=== PATIENT | female | born 1980 | race Native Hawaiian/Other Pacific Islander ===

== ENCOUNTER 2017-11-10 16:52 | Emergency (ER) | payer OTHER ==
[2017-11-10 17:55] LABS: Alanine Aminotransferase 44 units/L (7-56); Albumin 3.7 g/dL (3.9-5); BUN/Creatinine Ratio 22; Blood Urea Nitrogen 13 mg/dL (7-17); Calcium 8.9 mg/dL (8.4-10.2); Hemolysis Index 36
[2017-11-10 18:04] LABS: Basophils % (Auto) 0.3 % (0.0-1.8); Eosinophils # (Auto) 0.1 K/mm3 (0.0-0.4); Eosinophils % (Auto) 1.2 % (0.0-4.3); Hematocrit 39.3 % (30.3-42.9); Hemoglobin 13.1 gm/dl (10.1-14.3); Lymphocytes # (Auto) 3.4 K/mm3 (1.2-5.4); Lymphocytes % (Auto) 39.6 % (13.4-35.0); Mean Corpuscular HGB Conc 33 % (30-34); Mean Corpuscular Hemoglobin 30 pg (28-32); Mean Corpuscular Volume 91 fl (79-97); Monocytes # (Auto) 0.8 K/mm3 (0.0-0.8); Monocytes % (Auto) 8.9 % (0.0-7.3); Platelet Count 275 K/mm3 (140-440); Red Blood Count 4.32 M/mm3 (3.65-5.03)
[2017-11-10] MEDS ORDERED: ZOFRAN IV ONE (21:43)
[2017-11-10] MEDS ORDERED: SUBLIMAZE IV ONE (21:43)
[2017-11-10] MEDS ORDERED: NACL 0.9% 1000 ML 1,000 ML IV ONE (21:43)
--- NOTE | 2017-11-10 21:47 | Emergency Department Report ---
ED Abdominal Pain HPI - General Chief Complaint: Abdominal Pain Stated Complaint: HEAD/BACK PAIN Time Seen by Provider: 11/10/17 21:37 Source: patient, family Mode of arrival: Ambulatory Limitations: Language Barrier - History of Present Illness Initial Comments: Patient is a 37-year-old female with no significant past medical history or surgical history except for hysterectomy. Patient presented to the ER with chief complaint of right flank pain that radiated to her groin area and suprapubic area. Pain is sharp and comes and goes. Associated with nausea but no vomiting no diarrhea. Patient denied any hematuria or urinary symptoms. No fever. MD Complaint: abdominal pain, flank pain -: week(s) Location: suprapubic, R flank Radiation: suprapubic Migration to: no migration Severity scale (0 -10): 7 Quality: stabbing, fullness Consistency: constant Associated Symptoms: nausea, vomiting. denies: diarrhea - Related Data Home Medications Medication Instructions Recorded Confirmed Last Taken Bisoprolol/Hctz [Ziac 2.5-6.25] 1 each PO DAILY 06/26/16 06/29/16 06/29/16 08:00 Allergies Allergy/AdvReac Type Severity Reaction Status Date / Time No Known Allergies Allergy Unverified 06/26/16 14:38 ED Review of Systems ROS: Stated complaint: HEAD/BACK PAIN Other details as noted in HPI Comment: All other systems reviewed and negative Constitutional: chills. denies: fever Respiratory: denies: cough, orthopnea, shortness of breath, SOB with exertion, SOB at rest, wheezing Cardiovascular: denies: chest pain, palpitations, dyspnea on exertion Gastrointestinal: abdominal pain, nausea. denies: vomiting, diarrhea, constipation, hematemesis, melena, hematochezia Genitourinary: denies: urgency, dysuria, frequency, hematuria Musculoskeletal: back pain Skin: denies: rash, lesions, change in color, change in hair/nails Neurological: denies: headache, weakness, numbness, paresthesias, confusion, abnormal gait ED Past Medical Hx - Past Medical History Previous Medical History?: Yes Hx Hypertension: Yes (x 4 mos) Hx GERD: Yes - Surgical History Past Surgical History?: No - Social History Smoking Status: Never Smoker Substance Use Type: None - Medications Home Medications: Home Medications Medication Instructions Recorded Confirmed Last Taken Type Bisoprolol/Hctz [Ziac 2.5-6.25] 1 each PO DAILY 06/26/16 06/29/16 06/29/16 08: 00 History ED Physical Exam - General Limitations: Language Barrier General appearance: alert, in no apparent distress - Head Head exam: Present: atraumatic, normocephalic, normal inspection - Eye Eye exam: Present: normal appearance, PERRL - ENT ENT exam: Present: normal exam, normal orophraynx, mucous membranes moist - Neck Neck exam: Present: normal inspection, full ROM. Absent: tenderness, meningismus, lymphadenopathy - Respiratory Respiratory exam: Present: normal lung sounds bilaterally. Absent: respiratory distress, wheezes, rales, rhonchi, stridor, chest wall tenderness, accessory muscle use, decreased breath sounds, prolonged expiratory - Cardiovascular Cardiovascular Exam: Present: regular rate, normal rhythm, normal heart sounds - GI/Abdominal GI/Abdominal exam: Present: soft, tenderness (suprapubic tenderness), normal bowel sounds. Absent: distended, guarding, rebound, rigid, organomegaly, mass, bruit, hernia - Extremities Exam Extremities exam: Present: normal inspection, full ROM, normal capillary refill. Absent: tenderness, pedal edema, joint swelling, calf tenderness - Back Exam Back exam: Present: normal inspection, full ROM, CVA tenderness (R). Absent: tenderness, CVA tenderness (L), muscle spasm, paraspinal tenderness, vertebral tenderness, rash noted - Neurological Exam Neurological exam: Present: alert, oriented X3, CN II-XII intact, normal gait, reflexes normal. Absent: abnormal gait, motor sensory deficit - Skin Skin exam: Present: warm, intact, normal color. Absent: cyanosis, diaphoretic ED Course Vital Signs 11/10/17 11/10/17 11/10/17 16:55 21:49 22:00 Temperature 98.9 F Pulse Rate 63 Respiratory 16 Rate Blood Pressure 131/72 134/73 O2 Sat by Pulse 97 99 99 Oximetry 11/10/17 11/10/17 11/10/17 22:26 22:30 22:31 Temperature Pulse Rate Respiratory 13 Rate Blood Pressure 132/70 129/57 132/70 O2 Sat by Pulse 100 95 Oximetry 11/10/17 11/10/17 11/10/17 22:45 23:00 23:34 Temperature Pulse Rate Respiratory Rate Blood Pressure 123/54 116/61 123/54 O2 Sat by Pulse 98 96 99 Oximetry 11/10/17 11/11/17 11/11/17 23:46 00:00 00:15 Temperature Pulse Rate Respiratory Rate Blood Pressure 123/54 127/80 129/79 O2 Sat by Pulse 97 98 98 Oximetry - Reevaluation(s) Reevaluation #1: 11/11/17 00:47 Patient stated that she is feeling much better. Pain completely resolved. I informed the patient about her CT abdomen and pelvis results and her ultrasound of the abdomen which showed gallbladder stone. No clinical evidence of acute cholecystitis. Our last the patient follow-up with Dr. Burks for further management. ED Medical Decision Making - Lab Data Result diagrams: 11/10/17 17:20 11/10/17 17:20 - Radiology Data Radiology results: report reviewed Referring Physician: ROSANA WORTHY Patient Name: KATHLEEN LOPEZ Date of : 1980 Sex: Female Report Date: 2017-11-10 Report Status: Finalized Findings [facility] [address] [place] [address] Ultrasound Report Signed Patient: KATHLEEN LOPEZ MR#: [id number] : 1980 Acct:[id number] Age/Sex: 37 / F ADM Date: 11/10/17 Loc: ED Attending Dr: Ordering Physician: ROSANA WORTHY Date of Service: 11/10/17 Procedure(s): US abdomen limited Accession Number(s): [id number] cc: ROSANA WORTHY FINAL REPORT EXAM: US ABDOMEN LIMITED HISTORY: gallbladder ultrasound COMPARISON: CT of the abdomen and pelvis from November 10, 2017. TECHNIQUE: Several real-time grayscale and color Doppler images were obtained. FINDINGS: There is increased echogenicity of the liver compatible with fatty infiltration. Visualized pancreas is unremarkable. Majority the pancreatic body is obscured by bowel gas. Visualized aorta and IVC are normal in caliber. Right kidney measures 9.5 centimeters in length. No hydronephrosis. Multiple shadowing gallstones. Borderline gallbladder wall thickness. Evaluation wall thickness limited due to contracted state of the gallbladder. No pericholecystic fluid. The common bile duct measures up to 4 millimeters within normal limits. IMPRESSION: Cholelithiasis. Limited evaluation of gallbladder wall thickening due to its contracted state. No pericholecystic fluid or biliary dilatation. Correlation for Lanier's sign is needed. Transcribed By: JOVANNI Dictated By: ARACELI COLUNGA MD Electronically Authenticated By: ARACELI COLUNGA MD Signed Date/Time: 11/10/172030 DD/ 30 TD/TT: 11/10/172030 Referring Physician: ROSANA WORTHY Patient Name: KATHLEEN LOPEZ Date of : 1980 Sex: Female Report Date: 2017-11-10 Report Status: Finalized Findings [place] [id number] Cat Scan Report Signed Patient: KATHLEEN LOPEZ MR#: [id number] : 1980 Acct:[id number] Age/Sex: 37 / F ADM Date: 11/10/17 Loc: ED Attending Dr: Ordering Physician: ROSANA WORTHY Date of Service: 11/10/17 Procedure(s): CT abdomen pelvis wo con Accession Number(s): [id number] cc: ROSANA WORTHY FINAL REPORT EXAM: CT ABDOMEN PELVIS WO CON HISTORY: ABDOMINAL PAIN, right flank pain TECHNIQUE: CT abdomen and pelvis without contrast PRIORS: None. FINDINGS: No acute abnormality identified in the lung bases. No focal abnormality identified within the liver parenchyma. The spleen demonstrates normal size and attenuation. No pancreatic abnormalities seen. Kidneys demonstrate no evidence of hydronephrosis or nephrolithiasis. No ureteral calculus identified. The adrenal glands are unremarkable. Abdominal aorta is normal in caliber. No pathologically enlarged lymph nodes are identified. No signs of free fluid or free air No evidence of small bowel dilatation. No pericolonic inflammatory changes are identified Urinary bladder is unremarkable. IMPRESSION: Negative. No acute abnormalities seen Transcribed By: ANGEL Dictated By: RADHA BRADY MD Electronically Authenticated By: RADHA BRADY MD Signed Date/Time: 11/10/171844 DD/ 44 TD/TT: 11/10/171844 Critical care attestation.: If time is entered above; I have spent that time in minutes in the direct care of this critically ill patient, excluding procedure time. ED Disposition Clinical Impression: Abdominal pain, Gallbladder stone without cholecystitis or obstruction Disposition: - TO HOME OR SELFCARE Is pt being admited?: No Condition: Stable Instructions: Abdominal Pain (ED), Biliary Colic (ED) Referrals: MAREN BURKS MD [Staff Physician] - 3-5 Days
[2017-11-10 22:25] LABS: Bacteria,Urine 4+ /HPF (Negative); Bilirubin,Urine NEG (Negative); Blood,Urine NEG (Negative); Color,Urine Yellow (Yellow); Protein,Urine <15 mg/dL mg/dL (Negative); Urobilinogen,Urine < 2.0 mg/dL (<2.0)
--- NOTE | 2017-11-10 22:49 | Cat Scan Report ---
FINAL REPORT EXAM: CT ABDOMEN PELVIS WO CON HISTORY: ABDOMINAL PAIN, right flank pain TECHNIQUE: CT abdomen and pelvis without contrast PRIORS: None. FINDINGS: No acute abnormality identified in the lung bases. No focal abnormality identified within the liver parenchyma. The spleen demonstrates normal size and attenuation. No pancreatic abnormalities seen. Kidneys demonstrate no evidence of hydronephrosis or nephrolithiasis. No ureteral calculus identified. The adrenal glands are unremarkable. Abdominal aorta is normal in caliber. No pathologically enlarged lymph nodes are identified. No signs of free fluid or free air No evidence of small bowel dilatation. No pericolonic inflammatory changes are identified Urinary bladder is unremarkable. IMPRESSION: Negative. No acute abnormalities seen
[2017-11-11 00:27] VITALS: BP 129/79
--- NOTE | 2017-11-11 00:35 | Ultrasound Report ---
FINAL REPORT EXAM: US ABDOMEN LIMITED HISTORY: gallbladder ultrasound COMPARISON: CT of the abdomen and pelvis from November 10, 2017. TECHNIQUE: Several real-time grayscale and color Doppler images were obtained. FINDINGS: There is increased echogenicity of the liver compatible with fatty infiltration. Visualized pancreas is unremarkable. Majority the pancreatic body is obscured by bowel gas. Visualized aorta and IVC are normal in caliber. Right kidney measures 9.5 centimeters in length. No hydronephrosis. Multiple shadowing gallstones. Borderline gallbladder wall thickness. Evaluation wall thickness limited due to contracted state of the gallbladder. No pericholecystic fluid. The common bile duct measures up to 4 millimeters within normal limits. IMPRESSION: Cholelithiasis. Limited evaluation of gallbladder wall thickening due to its contracted state. No pericholecystic fluid or biliary dilatation. Correlation for Lanier's sign is needed.
== END 2017-11-11 01:23 | disposition home or self-care (01) ==
LOC: ED 16:52
DX: K80.20 Calculus of gallbladder without cholecystitis without obstruction (principal); R10.9 Unspecified abdominal pain; I10 Essential (primary) hypertension; K21.9 Gastro-esophageal reflux disease without esophagitis
CPT/HCPCS: 36415; 74176; 76705; 80053; 81001; 85025; 96361; 96374; 96375; 99284; J2405; J3010; J7030

== ENCOUNTER 2017-11-21 18:30 | Emergency (ER) | payer OTHER ==
[2017-11-21 20:03] LABS: Basophils % (Auto) 0.3 % (0.0-1.8); Eosinophils # (Auto) 0.1 K/mm3 (0.0-0.4); Eosinophils % (Auto) 1.2 % (0.0-4.3); Hematocrit 41.3 % (30.3-42.9); Hemoglobin 13.8 gm/dl (10.1-14.3); Lymphocytes % (Auto) 34.9 % (13.4-35.0); Mean Corpuscular HGB Conc 33 % (30-34); Mean Corpuscular Hemoglobin 30 pg (28-32); Mean Corpuscular Volume 91 fl (79-97); Monocytes # (Auto) 0.7 K/mm3 (0.0-0.8); Monocytes % (Auto) 8.4 % (0.0-7.3); Platelet Count 302 K/mm3 (140-440); Red Blood Count 4.53 M/mm3 (3.65-5.03); Red Cell Distribution Width 13.2 % (13.2-15.2)
[2017-11-21 20:17] LABS: Alanine Aminotransferase 44 units/L (7-56); Albumin 4.1 g/dL (3.9-5); BUN/Creatinine Ratio 20; Blood Urea Nitrogen 10 mg/dL (7-17); Calcium 9.2 mg/dL (8.4-10.2); Hemolysis Index 34
[2017-11-21 20:42] LABS: Bacteria,Urine 1+ /HPF (Negative); Bilirubin,Urine NEG (Negative); Blood,Urine NEG (Negative); Color,Urine Yellow (Yellow); Mucus,Urine 1+ /HPF; Protein,Urine <15 mg/dL mg/dL (Negative); Urobilinogen,Urine < 2.0 mg/dL (<2.0)
[2017-11-21] MEDS ORDERED: SUBLIMAZE IV ONE (21:20)
[2017-11-21 22:44] VITALS: BP 132/69
--- NOTE | 2017-11-21 22:46 | Cat Scan Report ---
FINAL REPORT PROCEDURE: CT ABDOMEN PELVIS W CON TECHNIQUE: Computerized axial tomography of the abdomen and pelvis was performed after the IV injection of iodinated nonionic contrast. HISTORY: gallstone pain COMPARISON: Ultrasound and CT 11/10/2017 FINDINGS: Visualized lower thorax: No significant abnormality. Liver: There is diffuse low attenuation of the liver, which can be seen with fatty infiltration. Spleen: Normal size and attenuation. Gallbladder and biliary system: Gallbladder is distended. No biliary ductal dilatation is seen. Gallbladder wall demonstrates diffuse enhancement and mild wall thickening. No surrounding inflammatory changes or pericholecystic fluid is noted Pancreas: Normal. Adrenals: Normal. Kidneys: Normal. GI tract: Moderate volume of stool throughout the colon is compatible with constipation. The appendix is visualized and does not appear inflamed. Lymph nodes and mesentery: Normal. Vasculature: Normal. Bladder: Normal. Reproductive organs: Normal. Peritoneum: No free fluid. Musculoskeletal structures: No significant abnormality. Other: None. IMPRESSION: Gallbladder distention and wall thickening. No significant acute inflammatory changes are seen by CT. Further evaluation with ultrasound or hepatobiliary scan could be obtained as clinically indicated to evaluate for possible cholecystitis.
[2017-11-21] MEDS ORDERED: PERCOCET 5/325 PO ONE (23:45)
--- NOTE | 2017-11-22 00:33 | Emergency Department Report ---
ED General Adult HPI - General Chief complaint: Abdominal Pain Stated complaint: GALLSTONE PAIN Time Seen by Provider: 11/21/17 21:18 Source: patient, family Mode of arrival: Ambulatory Limitations: No Limitations - History of Present Illness Initial comments: Patient is a 37-year-old female past medical history of cholelithiasis who presents with abdominal pain that's been going on for last couple days. History is obtained by patient's daughter S patient is Nauruan-speaking. Patient states that pain started earlier on today it's an 8 out of 10 nothing makes it worse she also has some nausea with the pain. She was seen last week for similar symptoms and was told to follow-up with an outpatient surgeon. Patient states that she was told to come back to the ED if her pain got worse. Patient states her pain got worse. No fever no trauma to the belly Severity scale (0 -10): 7 - Related Data Home Medications Medication Instructions Recorded Confirmed Last Taken Bisoprolol/Hctz [Ziac 2.5-6.25] 1 each PO DAILY 06/26/16 06/29/16 06/29/16 08:00 Previous Rx's Medication Instructions Recorded Last Taken Type HYDROcodone/APAP 5-325 [[place] 1 each PO Q6HR PRN #14 tablet 11/11/17 Unknown Rx 5/325] Ondansetron [Zofran Odt] 4 mg PO Q8HR PRN #14 tab.rapdis 11/11/17 Unknown Rx Meloxicam [Mobic] 15 mg PO DAILY #20 tablet 11/22/17 Unknown Rx traMADol [Ultram 50 MG tab] 50 mg PO Q6HR PRN #13 tablet 11/22/17 Unknown Rx Allergies Allergy/AdvReac Type Severity Reaction Status Date / Time No Known Allergies Allergy Verified 11/21/17 18:42 ED Review of Systems ROS: Stated complaint: GALLSTONE PAIN Other details as noted in HPI Constitutional: denies: chills, fever Eyes: denies: eye pain, eye discharge, vision change ENT: denies: ear pain, throat pain Respiratory: denies: cough, shortness of breath, wheezing Cardiovascular: denies: chest pain, palpitations Endocrine: no symptoms reported Gastrointestinal: abdominal pain, nausea. denies: diarrhea Genitourinary: denies: urgency, dysuria, discharge Musculoskeletal: denies: back pain, joint swelling, arthralgia Skin: denies: rash, lesions Neurological: denies: headache, weakness, paresthesias Psychiatric: denies: anxiety, depression Hematological/Lymphatic: denies: easy bleeding, easy bruising ED Past Medical Hx - Past Medical History Previous Medical History?: Yes Hx Hypertension: Yes (x 4 mos) Hx GERD: Yes - Surgical History Past Surgical History?: Yes Additional Surgical History: Hysterectomy, tonsils - Social History Smoking Status: Never Smoker Substance Use Type: None - Medications Home Medications: Home Medications Medication Instructions Recorded Confirmed Last Taken Type Bisoprolol/Hctz [Ziac 2.5-6.25] 1 each PO DAILY 06/26/16 06/29/16 06/29/16 08: 00 History HYDROcodone/APAP 5-325 [[place] 1 each PO Q6HR PRN #14 tablet 11/11/17 Unknown Rx 5/325] Ondansetron [Zofran Odt] 4 mg PO Q8HR PRN #14 tab.rapdis 11/11/17 Unknown Rx Meloxicam [Mobic] 15 mg PO DAILY #20 tablet 11/22/17 Unknown Rx traMADol [Ultram 50 MG tab] 50 mg PO Q6HR PRN #13 tablet 11/22/17 Unknown Rx ED Physical Exam - General Limitations: No Limitations General appearance: alert, in no apparent distress - Head Head exam: Present: atraumatic, normocephalic - Eye Eye exam: Present: normal appearance - ENT ENT exam: Present: mucous membranes moist - Neck Neck exam: Present: normal inspection - Respiratory Respiratory exam: Present: normal lung sounds bilaterally. Absent: respiratory distress - Cardiovascular Cardiovascular Exam: Present: regular rate, normal rhythm. Absent: systolic murmur, diastolic murmur, rubs, gallop - GI/Abdominal GI/Abdominal exam: Present: soft, normal bowel sounds - Extremities Exam Extremities exam: Present: normal inspection - Back Exam Back exam: Present: normal inspection - Neurological Exam Neurological exam: Present: alert, oriented X3 - Psychiatric Psychiatric exam: Present: normal affect, normal mood - Skin Skin exam: Present: warm, dry, intact, normal color. Absent: rash ED Course Vital Signs 11/21/17 11/21/17 11/21/17 19:40 21:13 21:15 Temperature 98.1 F Pulse Rate 64 Respiratory 18 Rate Blood Pressure 153/76 139/57 139/57 O2 Sat by Pulse 99 98 98 Oximetry 11/21/17 11/21/17 11/21/17 21:17 21:31 22:05 Temperature 98.9 F Pulse Rate 86 Respiratory Rate Blood Pressure 148/60 148/60 O2 Sat by Pulse 100 98 Oximetry 11/21/17 11/21/17 22:15 22:30 Temperature Pulse Rate Respiratory Rate Blood Pressure 148/60 132/69 O2 Sat by Pulse 99 98 Oximetry ED Medical Decision Making - Lab Data Result diagrams: 11/21/17 19:53 11/21/17 19:53 Lab Results 11/21/17 11/21/17 11/21/17 Range/Units 19:53 19:53 Unknown WBC 8.7 (4.5-11.0) K/mm3 RBC 4.53 (3.65-5.03) M/mm3 Hgb 13.8 (10.1-14.3) gm/dl Hct 41.3 (30.3-42.9) % MCV 91 (79-97) fl MCH 30 (28-32) pg MCHC 33 (30-34) % RDW 13.2 (13.2-15.2) % Plt Count 302 (140-440) K/mm3 Lymph % (Auto) 34.9 (13.4-35.0) % [place] % (Auto) 8.4 H (0.0-7.3) % Eos % (Auto) 1.2 (0.0-4.3) % Baso % (Auto) 0.3 (0.0-1.8) % Lymph # 3.0 (1.2-5.4) K/mm3 [place] # 0.7 (0.0-0.8) K/mm3 Eos # 0.1 (0.0-0.4) K/mm3 Baso # 0.0 (0.0-0.1) K/mm3 Seg Neutrophils % 55.2 (40.0-70.0) % Seg Neutrophils # 4.8 (1.8-7.7) K/mm3 Sodium 136 L (137-145) mmol/L Potassium 3.5 L (3.6-5.0) mmol/L Chloride 98.6 (98-107) mmol/L Carbon Dioxide 27 (22-30) mmol/L Anion Gap 14 mmol/L BUN 10 (7-17) mg/dL Creatinine 0.5 L (0.7-1.2) mg/dL Estimated GFR > 60 ml/min BUN/Creatinine Ratio 20 % Glucose 93 (65-100) mg/dL Calcium 9.2 (8.4-10.2) mg/dL Total Bilirubin 0.20 (0.1-1.2) mg/dL AST 40 (5-40) units/L ALT 44 (7-56) units/L Alkaline Phosphatase 72 (35-129) units/L Total Protein 7.0 (6.3-8.2) g/dL Albumin 4.1 (3.9-5) g/dL Albumin/Globulin Ratio 1.4 % Urine Color Yellow (Yellow) Urine Turbidity Clear (Clear) Urine pH 6.0 (5.0-7.0) Ur Specific [place] 1.021 (1.003-1.030) Urine Protein <15 mg/dl (Negative) mg/dL Urine Glucose (UA) Neg (Negative) mg/dL Urine Ketones Neg (Negative) mg/dL Urine Blood Neg (Negative) Urine Nitrite Neg (Negative) Urine Bilirubin Neg (Negative) Urine Urobilinogen < 2.0 (<2.0) mg/dL Ur Leukocyte Esterase Neg (Negative) Urine WBC (Auto) 4.0 (0.0-6.0) /HPF Urine RBC (Auto) 1.0 (0.0-6.0) /HPF U Epithel Cells (Auto) 5.0 (0-13.0) /HPF Urine Bacteria (Auto) 1+ (Negative) /HPF Urine Mucus 1+ /HPF - Radiology Data Radiology results: report reviewed, image reviewed Chief medical diagnosis: Cholelithiasis and excellent differential medical diagnosis: Pancreatitis, cholecystitis CT SCAN of IV pain medication, CBC, BMP and will reevaluate patient. Patient's pain has improved. Patient's gallbladder disease is unchanged from prior to one week ago. I will give patient f/u with surgery. Gave patient additional verbal discharge instructions. Patient agrees with plan. Critical care attestation.: If time is entered above; I have spent that time in minutes in the direct care of this critically ill patient, excluding procedure time. ED Disposition Clinical Impression: Gallbladder stone without cholecystitis or obstruction Abdominal pain Qualifiers: Abdominal location: generalized Qualified Code(s): R10.84 - Generalized abdominal pain Disposition: DC-01 TO HOME OR SELFCARE Is pt being admited?: No Does the pt Need Aspirin: No Condition: Stable Instructions: Biliary Colic (ED), Low Fat Diet (ED) Prescriptions: Meloxicam [Mobic] 15 mg PO DAILY #20 tablet traMADol [Ultram 50 MG tab] 50 mg PO Q6HR PRN #13 tablet PRN Reason: Pain Referrals: SHANT REAVES MD [Staff Physician] - 3-5 Days Print Language: CITIZEN OF [place]
== END 2017-11-22 01:04 | disposition home or self-care (01) ==
LOC: ED 18:30
DX: K80.20 Calculus of gallbladder without cholecystitis without obstruction (principal); R10.84 Generalized abdominal pain; I10 Essential (primary) hypertension; K21.9 Gastro-esophageal reflux disease without esophagitis
CPT/HCPCS: 36415; 74177; 80053; 81001; 85025; 96374; 99284; J3010; Q9967

== ENCOUNTER 2017-12-08 04:38 | Emergency (ER) | payer OTHER ==
[2017-12-08] MEDS ORDERED: ZOFRAN IV ONE ×2 (05:14→05:53)
[2017-12-08] MEDS ORDERED: DILAUDID IV ONE ×4 (05:14→08:53)
[2017-12-08 05:42] LABS: Basophils % (Auto) 0.3 % (0.0-1.8); Eosinophils # (Auto) 0.1 K/mm3 (0.0-0.4); Eosinophils % (Auto) 0.7 % (0.0-4.3); Hematocrit 41.5 % (30.3-42.9); Hemoglobin 13.5 gm/dl (10.1-14.3); Lymphocytes # (Auto) 2.6 K/mm3 (1.2-5.4); Lymphocytes % (Auto) 23.2 % (13.4-35.0); Mean Corpuscular HGB Conc 33 % (30-34); Mean Corpuscular Hemoglobin 30 pg (28-32); Mean Corpuscular Volume 92 fl (79-97); Monocytes # (Auto) 0.9 K/mm3 (0.0-0.8); Platelet Count 238 K/mm3 (140-440); Red Blood Count 4.53 M/mm3 (3.65-5.03); Red Cell Distribution Width 13.1 % (13.2-15.2)
[2017-12-08 05:58] LABS: Alanine Aminotransferase 73 units/L (7-56); Albumin 3.6 g/dL (3.9-5); BUN/Creatinine Ratio 18; Blood Urea Nitrogen 11 mg/dL (7-17); Calcium 8.2 mg/dL (8.4-10.2); Hemolysis Index 0
--- NOTE | 2017-12-08 06:12 | Emergency Department Report ---
ED Abdominal Pain HPI - General Chief Complaint: Abdominal Pain Stated Complaint: CHEST PAIN Time Seen by Provider: 12/08/17 05:58 Source: patient, family, EMS Mode of arrival: Stretcher Limitations: Physical Limitation, Other - History of Present Illness Initial Comments: Mrs. Barragan is a 37 yo female with hx of hypertension who presents 3 days status post open cholecystectomy on Sunday by Dr. Burks. Patient did well. She was discharged next day on . This morning her stated that she has sudden onset of abdominal pain and chest pain at 4:00. She has been taking the pain medicine. She has tenderness and severe pain at the site of the incision that radiates to her chest. She does not feel well. Mild headache. No fever. Positive nausea. Pain is worse with movement. Incision is tender to touch. I reviewed discharge summary by Dr. Burks. No complications. MD Complaint: abdominal pain -: Sudden Time: 04:00 Radiation: chest Severity: severe Severity scale (0 -10): 10 Quality: cramping, sharp, burning Consistency: constant Improves With: nothing Worsens With: movement Context: recent surgery/procedure Associated Symptoms: nausea. denies: vomiting, diarrhea, chills, constipation - Related Data Home Medications Medication Instructions Recorded Confirmed Last Taken Bisoprolol/Hctz [Ziac 2.5-6.25] 1 each PO DAILY 06/26/16 12/05/17 12/05/17 Previous Rx's Medication Instructions Recorded Last Taken Type Meloxicam [Mobic] 15 mg PO DAILY #20 tablet 11/22/17 12/04/17 Rx Oxycodone HCl/Acetaminophen 1 each PO Q4H PRN #15 tablet 12/08/17 Unknown Rx [Percocet 10/325 mg] Allergies Allergy/AdvReac Type Severity Reaction Status Date / Time No Known Allergies Allergy Verified 12/04/17 09:42 ED Review of Systems ROS: Stated complaint: CHEST PAIN Other details as noted in HPI Comment: All other systems reviewed and negative Constitutional: denies: chills, fever Respiratory: denies: cough, shortness of breath Cardiovascular: chest pain ED Past Medical Hx - Past Medical History Previous Medical History?: Yes Hx Hypertension: Yes (x 4 mos) Hx Heart Attack/AMI: No Hx Congestive Heart Failure: No Hx Diabetes: No Hx GERD: Yes Hx Liver Disease: No Hx Renal Disease: No Hx Sickle Cell Disease: No Hx Asthma: No Hx COPD: No Hx HIV: No - Surgical History Past Surgical History?: Yes Hx Pacemaker: No Hx Internal Defibrillator: No Hx Cholecystectomy: Yes Additional Surgical History: Hysterectomy, tonsils - Social History Smoking Status: Never Smoker Substance Use Type: None - Medications Home Medications: Home Medications Medication Instructions Recorded Confirmed Last Taken Type Bisoprolol/Hctz [Ziac 2.5-6.25] 1 each PO DAILY 06/26/16 12/05/17 12/05/17 History Meloxicam [Mobic] 15 mg PO DAILY #20 tablet 11/22/17 12/05/17 12/04/17 Rx Oxycodone HCl/Acetaminophen 1 each PO Q4H PRN #15 tablet 12/08/17 Unknown Rx [Percocet 10/325 mg] ED Physical Exam - General Limitations: Physical Limitation, Other General appearance: alert, other (appears in severe pain no respiratory distress ) - Head Head exam: Present: atraumatic, normocephalic - Eye Eye exam: Present: normal appearance - ENT ENT exam: Present: normal exam, mucous membranes moist - Neck Neck exam: Present: normal inspection - Respiratory Respiratory exam: Present: normal lung sounds bilaterally. Absent: respiratory distress, wheezes, rales, rhonchi - Cardiovascular Cardiovascular Exam: Present: regular rate, normal rhythm, normal heart sounds. Absent: systolic murmur, diastolic murmur, rubs, gallop - GI/Abdominal GI/Abdominal exam: Present: soft, tenderness, guarding, normal bowel sounds, other (tenderness around the site of the incision, incision intact without dehiscence incision is clean dry intact). Absent: distended, rebound - Extremities Exam Extremities exam: Present: normal inspection - Back Exam Back exam: Present: normal inspection - Neurological Exam Neurological exam: Present: alert, oriented X3 - Psychiatric Psychiatric exam: Present: normal affect, anxious - Skin Skin exam: Present: warm, dry, intact, normal color. Absent: rash ED Course Vital Signs 12/08/17 12/08/17 12/08/17 04:48 05:00 05:10 Temperature 98.4 F Pulse Rate 62 71 64 Respiratory 13 19 22 Rate Blood Pressure 142/76 142/74 Blood Pressure [Left] O2 Sat by Pulse 100 99 100 Oximetry 12/08/17 12/08/17 12/08/17 05:16 05:30 05:46 Temperature Pulse Rate 61 60 71 Respiratory 22 22 33 H Rate Blood Pressure 142/76 152/66 143/56 Blood Pressure [Left] O2 Sat by Pulse 100 100 100 Oximetry 12/08/17 12/08/17 12/08/17 06:54 06:58 08:49 Temperature Pulse Rate 68 93 H Respiratory 18 18 20 Rate Blood Pressure 143/56 Blood Pressure 138/50 [Left] O2 Sat by Pulse 100 96 99 Oximetry - Reevaluation(s) Reevaluation #1: 12/08/17 07:[address] Burks surgeon who performed cholecystectomy. He called to give me his impression. He informed me that Mrs. Gunter has a low pain threshold. He recommended medications for anxiety and sleep. ED Medical Decision Making - Lab Data Result diagrams: 12/08/17 05:29 12/08/17 05:29 Vital Signs - 24 hr 12/08/17 05:10 Temperature 98.4 F Pulse Rate 64 Respiratory 22 Rate Blood Pressure 142/74 O2 Sat by Pulse 100 Oximetry Laboratory Results - last 24 hr 12/08/17 12/08/17 05:29 05:29 WBC 11.1 H RBC 4.53 Hgb 13.5 Hct 41.5 MCV 92 MCH 30 MCHC 33 RDW 13.1 L Plt Count 238 Lymph % (Auto) 23.2 Adams % (Auto) 8.0 H Eos % (Auto) 0.7 Baso % (Auto) 0.3 Lymph # 2.6 Adams # 0.9 H Eos # 0.1 Baso # 0.0 Seg Neutrophils % 67.8 Seg Neutrophils # 7.6 Sodium 137 Potassium 4.0 Chloride 98.1 Carbon Dioxide 26 Anion Gap 17 BUN 11 Creatinine 0.6 L Estimated GFR > 60 BUN/Creatinine Ratio 18 Glucose 125 H Calcium 8.2 L Total Bilirubin 0.40 AST 36 ALT 73 H Alkaline Phosphatase 64 Total Protein 6.8 Albumin 3.6 L Albumin/Globulin Ratio 1.1 Vital Signs - 24 hr 12/08/17 12/08/17 12/08/17 04:48 05:00 05:10 Temperature 98.4 F Pulse Rate 62 71 64 Respiratory 13 19 22 Rate Blood Pressure 142/76 142/74 Blood Pressure [Left] O2 Sat by Pulse 100 99 100 Oximetry 12/08/17 12/08/17 12/08/17 05:16 05:30 05:46 Temperature Pulse Rate 61 60 71 Respiratory 22 22 33 H Rate Blood Pressure 142/76 152/66 143/56 Blood Pressure [Left] O2 Sat by Pulse 100 100 100 Oximetry 12/08/17 12/08/17 12/08/17 06:54 06:58 08:49 Temperature Pulse Rate 68 93 H Respiratory 18 18 20 Rate Blood Pressure 143/56 Blood Pressure 138/50 [Left] O2 Sat by Pulse 100 96 99 Oximetry - Medical Decision Making Mrs. Barragan presents with abdominal pain and chest pain pain 3 days s/p open cholecystectomy. No indication of PE. I attribute chest pain to GERD and radiating pain. I spoke with DR. Burks twice. He did not feel that the 2.3 cm fluid collection seen on CT is attributed to biloma or abscess. CT chest angiogram negative for PE. Family members request something stronger for pain. I prescribed 15 tablets of Percocet. Critical care attestation.: If time is entered above; I have spent that time in minutes in the direct care of this critically ill patient, excluding procedure time. ED Disposition Clinical Impression: Post-operative pain Disposition: DC-01 TO HOME OR SELFCARE Is pt being admited?: No Does the pt Need Aspirin: No Condition: Stable Instructions: Acute Abdominal Pain (ED) Prescriptions: Oxycodone HCl/Acetaminophen [Percocet 10/325 mg] 1 each PO Q4H PRN #15 tablet PRN Reason: Pain Referrals: MAREN BURKS MD [Staff Physician] - 3-5 Days Time of Disposition: 09:35 Print Language: KOREAN
[2017-12-08] MEDS ORDERED: ATIVAN IV ONE (07:31)
--- NOTE | 2017-12-08 08:54 | Cat Scan Report ---
FINAL REPORT EXAM: CT ANGIO CHEST HISTORY: chest pain s/p cholecystectomy TECHNIQUE: CT imaging obtained through the chest in angiographic phase following intravenous administration of contrast. Transaxial, Coronal and sagittal reformats with maximal intensity projections are provided. PRIORS: CT abdomen pelvis of the same date and 11/21/2017. FINDINGS: Normal caliber main pulmonary artery. No central pulmonary embolism. More distal portions of the pulmonary arterial tree are not well opacified, and more detailed evaluation of pulmonary embolism is not possible. No pericardial effusion. Thoracic aorta is normal in course and caliber. No periaortic fluid or stranding. Bibasilar atelectasis. No pneumothorax or effusion. The central airways are patent. No bronchiectasis. Please see CT abdomen and pelvis of the same date. The superficial soft tissues are unremarkable. No acute bony abnormality or worrisome osseous lesions identified. IMPRESSION: No large central pulmonary embolism. There is suboptimal opacification of the pulmonary arterial tree, and more detailed evaluation for pulmonary embolism is not possible. Bibasilar dependent atelectasis and hypoaeration of the lungs.
--- NOTE | 2017-12-08 09:03 | Cat Scan Report ---
FINAL REPORT EXAM: CT ABDOMEN PELVIS W CON HISTORY: abdominal pain s/p recent cholecystectomy TECHNIQUE: CT images are acquired through the Abdomen and Pelvis following intravenous administration of contrast. Transaxial, coronal and sagittal reformations are provided. PRIORS: Preoperative CT 11/21/2017 FINDINGS: Please see CT chest of the same date Patient is status post cholecystectomy. There is fluid and debris within the gallbladder fossa. A peripherally enhancing collection on axial series 3, image 151 measures approximately 28 x 26 x 24 millimeters. A couple of small foci of air are present adjacent to the fluid collection. Small volume of perihepatic ascites. The liver, pancreas, spleen and adrenal glands are otherwise unremarkable. Kidneys show no worrisome lesions, hydronephrosis, or calculi. Urinary bladder is unremarkable. Small and large bowel are normal in caliber. Appendix is normal. No slim pneumoperitoneum or lymphadenopathy. Aorta is normal in course and caliber. Superficial soft tissues are remarkable for right upper quadrant surgical scarring status post open cholecystectomy. There is edema and multiple small foci of subcutaneous emphysema along the incision site with overlying skin closure clips. No acute or aggressive appearing skeletal findings. IMPRESSION: Rim enhancing fluid collection with adjacent debris and stranding in the gallbladder fossa may represent an abscess, hemorrhage or biliary leak and measures 2.8 x 2.6 x 2.4 cm status post recent cholecystectomy. Dr. Garcia discussed findings with Dr. Maddox at at 07:52 central Time on 12/08/2017 immediately following the examination.
--- NOTE | 2017-12-08 09:22 | XRay Report ---
AP CHEST : 12/08/17 04:38:00 CLINICAL: Chest pain after cholecystectomy. COMPARISON:None. FINDINGS: The heart is normal size.Central vascular congestion and prominence of the right hilum due to rotation. Bibasal streaky opacities and as well as more diffuse lung opacities. No tubes or lines. IMPRESSION: Bibasal atelectasis and possible bibasal airspace disease.
[2017-12-08 10:35] VITALS: BP 147/56
== END 2017-12-08 10:20 | disposition home or self-care (01) ==
LOC: ED 04:38
DX: G89.18 Other acute postprocedural pain (principal); R10.9 Unspecified abdominal pain; R07.9 Chest pain, unspecified; R11.0 Nausea; I10 Essential (primary) hypertension; K21.9 Gastro-esophageal reflux disease without esophagitis; Z90.49 Acquired absence of other specified parts of digestive tract; Z90.710 Acquired absence of both cervix and uterus
CPT/HCPCS: 36415; 71045; 71275; 74177; 80053; 85025; 96374; 96375; 96376; 99285; J1170; J2405; Q9967

== ENCOUNTER 2017-12-25 18:16 | Emergency (ER) | payer OTHER ==
[2017-12-25] MEDS ORDERED: NACL 0.9% 1000 ML 1,000 ML IV ONE (19:25)
[2017-12-25] MEDS ORDERED: ZOFRAN IV ONE ×2 (19:25→23:30)
[2017-12-25] MEDS ORDERED: DILAUDID IV ONE ×2 (19:25→23:30)
[2017-12-25] MEDS ORDERED: PEPCID IV ONE (19:25)
--- NOTE | 2017-12-25 19:27 | Emergency Department Report ---
Blank Doc - Documentation Documentation: Patient is a 37-year-old female who had emergency gallbladder surgery done 12/04/2017. Patient on her last visit with her surgeon Dr. Milian was thought to have a normal healing wound. Patient states at the interval between the last visit and today she is having some increased pain redness and foul- smelling purulent drainage from her wound. Patient denies any fever however she does have nausea. CT of abdomen and pelvis will be performed as well as laboratory studies.
[2017-12-25] MEDS ORDERED: ZOSYN/NS 4.5GM/100ML 4.5 GM/100 ML VIAL IV SCH (20:00)
[2017-12-25 20:04] LABS: Basophils # (Auto) 0.1 K/mm3 (0.0-0.1); Basophils % (Auto) 0.7 % (0.0-1.8); Eosinophils # (Auto) 0.2 K/mm3 (0.0-0.4); Eosinophils % (Auto) 3.1 % (0.0-4.3); Hemoglobin 13.5 gm/dl (10.1-14.3); Lymphocytes # (Auto) 2.7 K/mm3 (1.2-5.4); Lymphocytes % (Auto) 33.8 % (13.4-35.0); Mean Corpuscular HGB Conc 34 % (30-34); Mean Corpuscular Hemoglobin 30 pg (28-32); Mean Corpuscular Volume 90 fl (79-97); Monocytes # (Auto) 0.8 K/mm3 (0.0-0.8); Monocytes % (Auto) 10.8 % (0.0-7.3); Platelet Count 317 K/mm3 (140-440); Red Blood Count 4.47 M/mm3 (3.65-5.03); Red Cell Distribution Width 12.7 % (13.2-15.2)
[2017-12-25 20:27] LABS: Alanine Aminotransferase 37 units/L (7-56); Albumin 3.7 g/dL (3.9-5); BUN/Creatinine Ratio 20; Blood Urea Nitrogen 10 mg/dL (7-17); Calcium 8.9 mg/dL (8.4-10.2); Hemolysis Index 15
[2017-12-25 20:30] LABS: Bacteria,Urine 4+ /HPF (Negative); Bilirubin,Urine NEG (Negative); Blood,Urine NEG (Negative); Color,Urine Yellow (Yellow); Protein,Urine <15 mg/dL mg/dL (Negative); Urobilinogen,Urine < 2.0 mg/dL (<2.0)
--- NOTE | 2017-12-25 22:13 | Cat Scan Report ---
FINAL REPORT PROCEDURE: CT ABDOMEN PELVIS W CON TECHNIQUE: Computerized axial tomography of the abdomen and pelvis was performed after the IV injection of iodinated nonionic contrast. HISTORY: right sided wound infection. extent??, History of cholecystectomy COMPARISON: 12/08/2017 FINDINGS: Visualized lower thorax: There is platelike atelectasis or scarring in bilateral lung bases. Liver: Normal size and attenuation. Spleen: Normal size and attenuation. Gallbladder and biliary system: There are surgical clips in the region of the gallbladder fossa. There is heterogeneous low attenuation in the gallbladder fossa as well as a peripherally enhancing cystic structure, increased in size compared to the prior study, now measuring up to 2.8 centimeters. This may be related to a cystic duct remnant versus seroma or possible infected fluid collection Pancreas: Normal. Adrenals: Normal. Kidneys: Normal. GI tract: There is a large volume of stool in the colon, compatible with constipation. The appendix is visualized and does not appear inflamed. No bowel obstruction or acute inflammation is seen. Lymph nodes and mesentery: Normal. Vasculature: Normal. Bladder: Normal. Reproductive organs: Normal. Peritoneum: No free fluid. Musculoskeletal structures: Degenerative disc changes at L5-S1. Other: There is subcutaneous stranding in the right anterior lateral abdominal wall, with minimal stranding of the underlying musculature. Findings may be related to recent incision. No focal abdominal wall abscess is seen. Cannot exclude cellulitis. IMPRESSION: There is subcutaneous stranding in the right anterior lateral abdominal wall, with minimal stranding of the underlying musculature, related to recent surgery. No focal abdominal wall abscess is seen. Cannot exclude cellulitis by CT. There is a circumscribed fluid collection or cystic structure in the gallbladder fossa, with surrounding heterogeneous low attenuation. This finding may be related to cystic duct remnant or possible postsurgical seroma. No significant inflammatory changes are seen surrounding the gallbladder fossa, however cannot fully exclude an infected collection. If there is concern for biloma, evaluation with hepatobiliary scan could be obtained.
[2017-12-26 00:09] VITALS: BP 123/65
--- NOTE | 2017-12-26 00:17 | Emergency Department Report ---
ED General Adult HPI - General Chief complaint: Puncture Wound Stated complaint: INFECTED INCISION Time Seen by Provider: 12/25/17 19:11 Source: patient Mode of arrival: Ambulatory Limitations: No Limitations - History of Present Illness Initial comments: Patient is a 37-year-old female who had emergency gallbladder surgery done 12/04/2017. Patient on her last visit with her surgeon Dr. iFnk was thought to have a normal healing wound. Patient states at the interval between the last visit and today she is having some increased pain redness and foul- smelling purulent drainage from her wound. Patient denies any fever however she does have nausea. Location: abdomen Severity scale (0 -10): 4 Quality: stabbing, aching Consistency: constant Improves with: medication Associated Symptoms: denies: cough, fever/chills, shortness of breath - Related Data Home Medications Medication Instructions Recorded Confirmed Last Taken Bisoprolol/Hctz [Ziac 2.5-6.25] 1 each PO DAILY 06/26/16 12/05/17 12/05/17 Previous Rx's Medication Instructions Recorded Last Taken Type Meloxicam [Mobic] 15 mg PO DAILY #20 tablet 11/22/17 12/04/17 Rx Oxycodone HCl/Acetaminophen 1 each PO Q4H PRN #15 tablet 12/26/17 Unknown Rx [Percocet 10/325 mg] Allergies Allergy/AdvReac Type Severity Reaction Status Date / Time No Known Allergies Allergy Verified 12/04/17 09:42 ED Review of Systems ROS: Stated complaint: INFECTED INCISION Other details as noted in HPI Constitutional: denies: chills, fever Eyes: denies: eye pain, eye discharge, vision change ENT: denies: ear pain, throat pain Respiratory: denies: cough, shortness of breath, wheezing Gastrointestinal: abdominal pain, nausea. denies: vomiting, diarrhea, constipation Genitourinary: denies: urgency, dysuria, discharge Musculoskeletal: denies: back pain, joint swelling, arthralgia Skin: other (discharge with odor.) Neurological: headache. denies: weakness, paresthesias Psychiatric: denies: anxiety, depression Hematological/Lymphatic: denies: easy bleeding, easy bruising ED Past Medical Hx - Past Medical History Previous Medical History?: Yes Hx Hypertension: Yes (x 4 mos) Hx Heart Attack/AMI: No Hx Congestive Heart Failure: No Hx Diabetes: No Hx GERD: Yes Hx Liver Disease: No Hx Renal Disease: No Hx Sickle Cell Disease: No Hx Asthma: No Hx COPD: No Hx HIV: No - Surgical History Past Surgical History?: Yes Hx Pacemaker: No Hx Internal Defibrillator: No Hx Cholecystectomy: Yes Additional Surgical History: Hysterectomy, tonsils - Social History Smoking Status: Never Smoker Substance Use Type: None - Medications Home Medications: Home Medications Medication Instructions Recorded Confirmed Last Taken Type Bisoprolol/Hctz [Ziac 2.5-6.25] 1 each PO DAILY 06/26/16 12/05/17 12/05/17 History Meloxicam [Mobic] 15 mg PO DAILY #20 tablet 11/22/17 12/05/17 12/04/17 Rx Oxycodone HCl/Acetaminophen 1 each PO Q4H PRN #15 tablet 12/26/17 Unknown Rx [Percocet 10/325 mg] ED Physical Exam - General Limitations: No Limitations General appearance: alert, in no apparent distress - Head Head exam: Present: atraumatic, normocephalic - Eye Eye exam: Present: normal appearance - ENT ENT exam: Present: mucous membranes moist - Neck Neck exam: Present: normal inspection - Respiratory Respiratory exam: Present: normal lung sounds bilaterally. Absent: respiratory distress - Cardiovascular Cardiovascular Exam: Present: regular rate, normal rhythm. Absent: systolic murmur, diastolic murmur, rubs, gallop - GI/Abdominal GI/Abdominal exam: Present: soft, tenderness. Absent: distended - Extremities Exam Extremities exam: Present: normal inspection - Neurological Exam Neurological exam: Present: alert, oriented X3 - Psychiatric Psychiatric exam: Present: normal affect, normal mood - Skin Skin exam: Present: warm, dry, intact, normal color. Absent: rash ED Course Vital Signs 12/25/17 12/25/17 12/26/17 18:22 20:29 00:09 Temperature 98.9 F 98.4 F 98.8 F Pulse Rate 88 68 71 Respiratory 20 16 16 Rate Blood Pressure 149/82 Blood Pressure 126/71 123/65 [Left] O2 Sat by Pulse 98 98 97 Oximetry ED Medical Decision Making - Lab Data Result diagrams: 12/25/17 19:31 12/25/17 19:31 - Medical Decision Making Patient's been seen by this provider as well as Dr. Maddox. CT scan, labs CBC CMP urinalysis was ordered which were all stable. Patient has been given pain medication IV antibiotics IV Zofran. Discussed with Dr. Pedroza as well. Spoke with reviewed CT studies as well as labs. Dr. Fink instructed for the patient to call him tomorrow at 10:30 to make an appointment to come in so he is able to evaluate patient. Critical care attestation.: If time is entered above; I have spent that time in minutes in the direct care of this critically ill patient, excluding procedure time. ED Disposition Clinical Impression: Postoperative abdominal pain Abdominal pain Qualifiers: Abdominal location: right upper quadrant Qualified Code(s): R10.11 - Right upper quadrant pain Disposition: DC- TO HOME OR SELFCARE Is pt being admited?: No Does the pt Need Aspirin: No Condition: Stable Additional Instructions: Please call Dr. Eli at 10:30. Take pain medication as prescribed. Prescriptions: Oxycodone HCl/Acetaminophen [Percocet 10/325 mg] 1 each PO Q4H PRN #15 tablet PRN Reason: Pain Referrals: PRIMARY CARE,MD [Primary Care Provider] - 3-5 Days Forms: Work/School Release Form(ED)
== END 2017-12-26 00:54 | disposition home or self-care (01) ==
LOC: ED 18:16
DX: R10.11 Right upper quadrant pain (principal); I10 Essential (primary) hypertension; K21.9 Gastro-esophageal reflux disease without esophagitis; Z90.710 Acquired absence of both cervix and uterus
CPT/HCPCS: 36415; 74177; 80053; 81001; 84703; 85025; 87040; 96365; 96375; 96376; 99284; J1170; J2405; J2543; J7030; Q9967

== ENCOUNTER 2018-06-24 08:40 | Outpatient (CLI) | payer OTHER ==
--- NOTE | 2018-06-24 13:19 | XRay Report ---
IVP History: Urethral stricture. Findings: Informed consent was obtained. Multiple overhead radiographs were obtained after injection of IV contrast. There is prompt visualization of both renal shadows which appear normal size, contour and position. No evidence for renal lesion. There is prompt and symmetric appearance of the contrast agent in both renal collecting systems. There is no evidence for abnormal dilatation, stricture or filling defect. There is normal filling of the bladder. Postvoid film demonstrates near complete emptying of the bladder. Impression: Normal IVP.
== END 2018-06-24 08:41 | disposition home or self-care (01) ==
LOC: XRAY 08:40
PROVIDERS: ATTEND Internal Medicine Cardiovascular Disease
DX: N35.92 Unspecified urethral stricture, female (principal); I10 Essential (primary) hypertension; K21.9 Gastro-esophageal reflux disease without esophagitis; E03.9 Hypothyroidism, unspecified; Z90.89 Acquired absence of other organs; Z90.49 Acquired absence of other specified parts of digestive tract; Z90.710 Acquired absence of both cervix and uterus; Z86.73 Personal history of transient ischemic attack (TIA), and cerebral infarction without residual deficits
CPT/HCPCS: 36415; 74400; 82565; Q9967